=== PATIENT | male | born 1950 | race Hispanic/Latino ===

== ENCOUNTER → 2021-12-20 | Outpatient (CLI) | payer OTHER ==
[~2021-12-20] MED LIST: IOHEXOL 350 MG/ML 100ML INFUS..BTL IV ONE
== END | disposition home or self-care (01) ==
LOC: RAH 09:44
PROVIDERS: ATTEND Internal Medicine Gastroenterology
DX: K74.60 Unspecified cirrhosis of liver (principal); R77.2 Abnormality of alphafetoprotein; K80.20 Calculus of gallbladder without cholecystitis without obstruction; R16.1 Splenomegaly, not elsewhere classified
CPT/HCPCS: 74170; Q9967

== ENCOUNTER 2023-03-06 15:46 | Observation (INO) | payer OTHER ==
[~2023-03-06] VITALS: Ht 165.1 cm; Wt 80.1 kg
[2023-03-06 16:28] LABS: BILIRUBIN,URINE NEGATIVE (NEGATIVE); COLOR,URINE YELLOW (YELLOW); GLUCOSE, URINE (UA) NEGATIVE (NEGATIVE); KETONES,URINE NEGATIVE (NEGATIVE); LEUKOCYTE ESTERASE ,URINE NEGATIVE Leu/uL (NEGATIVE); NITRATE,URINE NEGATIVE (NEGATIVE); OCCULT BLOOD,URINE NEGATIVE (NEGATIVE); PH,URINE 7.5 (5.0-8.0); PROTEIN,URINE NEGATIVE (NEGATIVE)
[2023-03-06 16:29] LABS: ADD UA MICROSCOPIC YES; APPEARANCE,URINE HAZY (CLEAR)
[2023-03-06 16:30] LABS: BASOPHILS # (AUTO) 0.03 K/uL (0.00-0.20); BASOPHILS % (AUTO) 0.8 % (0.0-5.0); EOSINOPHILS # (AUTO) 0.27 K/uL (0.00-0.70); HEMATOCRIT 39.7 % (42-54); IMMATURE GRANULOCYTE ABSOLUTE 0.02 K/uL (0-1); LYMPHOCYTES # (AUTO) 1.3 K/uL (1.0-4.8); LYMPHOCYTES % (AUTO) 32.9 % (21.0-51.0); MEAN CORPUSCULAR HEMOGLOBIN 30.5 pg (27.0-33.0); MEAN CORPUSCULAR VOLUME 92.3 fL (79-99); MONOCYTES # (AUTO) 0.6 K/uL (0.1-1.0); MONOCYTES % (AUTO) 16.1 % (3.0-13.0); NEUTROPHILS # (AUTO) 1.7 K/uL (1.8-7.7); NEUTROPHILS % (AUTO) 42.7 % (40.0-77.0); PLATELET COUNT (AUTO) 112 K/uL (130-400); RED CELL DISTRIBUTION WIDTH 15.4 % (11.0-15.5); WHITE BLOOD COUNT (AUTO) 3.9 K/uL (4.8-10.8)
[2023-03-06 16:37] LABS: CREATININE 0.7 mg/dL (0.5-1.5); POTASSIUM 3.7 mmol/L (3.5-5.1)
[2023-03-06 16:44] LABS: ALBUMIN 3.4 g/dL (3.5-5.0); BILIRUBIN,TOTAL 1.6 mg/dL (0.2-1.0); TOTAL PROTEIN, SERUM 7.5 g/dL (6.0-8.3)
[2023-03-06 17:07] LABS: BACTERIA,URINE FEW /HPF (None Seen); MUCUS,URINE RARE LPF (None Seen); RBC,URINE 0-1 /HPF (0-1); WBC,URINE 0-1 /HPF (0-1)
[2023-03-06] MEDS ORDERED: LACTULOSE 20 GM/30 ML UDCUP PO ONE (17:30)
[2023-03-06 18:59] LABS: ALCOHOL, BLOOD < 3 mg/dL (0-10)
[2023-03-06 19:07] LABS: AMPHET/METH SCREEN,URINE NEGATIVE (NEGATIVE); BARBITURATE SCREEN, URINE NEGATIVE (NEGATIVE); BENZODIAZEPINES SCREEN,URINE NEGATIVE (NEGATIVE); CANNABINOID SCREEN,URINE NEGATIVE (NEGATIVE); COCAINE SCREEN,URINE NEGATIVE (NEGATIVE); OPIATE SCREEN,URINE NEGATIVE (NEGATIVE); PHENCYCLIDINE SCREEN,URINE NEGATIVE (NEGATIVE)
[2023-03-06 19:17] LABS: RAPID GROUP A STREP negative (NEGATIVE)
[2023-03-06 19:29] LABS: INFLUENZA TYPE A Negative For Type A (NEGATIVE); INFLUENZA TYPE B Negative For Type B (NEGATIVE)
[2023-03-06 19:30] LABS: COVID19 (SARS ANTIGEN RAPID) PRESUMPTIVE NEGATIVE (NEGATIVE)
[2023-03-06] MEDS: LACTULOSE 20 GM/30 ML UDCUP PO SCH (20:56)
[2023-03-06] MEDS: 0.9%NACL 1000ML 1,000 ML IV SCH (20:56)
[2023-03-06] MEDS: INSULIN HUMULIN R 100 UNIT/ML 3ML SQ SCH (20:56)
[2023-03-06] MEDS ORDERED: ONDANSETRON 4MG INJ IV PRN (21:00)
[2023-03-06] MEDS ORDERED: LABETALOL 20MG VIAL IV PRN (21:00)
[2023-03-06 22:35] VITALS: BP 123/70; PULSE 64; RESP 18
[2023-03-07] MEDS: 0.9%NACL 1000ML 1,000 ML IV SCH ×2 (01:52→09:21)
[2023-03-07] MEDS ORDERED: PROP10TA10 PO (03:52)
[2023-03-07] MEDS ORDERED: FENO145T26 PO (03:52)
[2023-03-07] MEDS ORDERED: ATOR10 PO (03:52)
[2023-03-07] MEDS ORDERED: LOSA50TA64 PO (03:52)
[2023-03-07 04:00] VITALS: BP 110/52; PULSE 65; RESP 18
[2023-03-07] MEDS ORDERED: MECO10005 PO (04:00)
[2023-03-07] MEDS ORDERED: CALC-866 PO (04:00)
[2023-03-07] MEDS: LACTULOSE 20 GM/30 ML UDCUP PO SCH (05:00)
[2023-03-07] MEDS: INSULIN HUMULIN R 100 UNIT/ML 3ML SQ SCH ×2 (06:13→11:30)
[2023-03-07 08:00] VITALS: O2SAT 99
[2023-03-07 08:04] VITALS: BP 114/71; PULSE 61; RESP 17
[2023-03-07] MEDS ORDERED: PANTOPRAZOLE 40 MG TAB DR PO SCH (09:00)
[2023-03-07] MEDS ORDERED: LACT PO (11:21)
[2023-03-07 12:00] VITALS: BP 110/73; PULSE 64; RESP 16
== END 2023-03-07 13:10 | disposition home or self-care (01) ==
LOC: EDH 15:46 → 4CH 20:36 → UNDOADMIN 20:36 → EDHIP 20:36 → INTOOBSV 20:36 → EDHIP 22:12 → 4CH 22:12
PROVIDERS: ADMIT Hospitalist; ATTEND Hospitalist
DX: S09.90XA Unspecified injury of head, initial encounter (principal); Z20.822 Contact with and (suspected) exposure to COVID-19; K76.82 Hepatic encephalopathy; E72.20 Disorder of urea cycle metabolism, unspecified; I10 Essential (primary) hypertension; E11.9 Type 2 diabetes mellitus without complications; M79.622 Pain in left upper arm; R41.82 Altered mental status, unspecified; E78.00 Pure hypercholesterolemia, unspecified; K76.0 Fatty (change of) liver, not elsewhere classified; I70.90 Unspecified atherosclerosis; W54.1XXA Struck by dog, initial encounter; Y93.89 Activity, other specified; Y92.89 Other specified places as the place of occurrence of the external cause; Y99.8 Other external cause status
CPT/HCPCS: 96360; 96361 ×3; 99285; 84484; 80053; 80305; 82140 ×2; 83690; 85025; 87880; 87420; 87804 ×2; 82948 ×3; 87426; 81001; 36415 ×2; 71045; 70450; 76705; 93005; J7030; G0378 ×2

== ENCOUNTER → 2023-06-26 | Outpatient (CLI) | payer OTHER ==
[~2023-06-26] MED LIST changes: +ATOR10 PO; +CALC-866 PO; +FENO145T26 PO; +GADOTERATE MEGLUMINE 10 MMOL/20 ML VIAL IV ONE; -IOHEXOL 350 MG/ML 100ML INFUS..BTL IV ONE; +LACT PO; +LOSA50TA64 PO; +MECO10005 PO; +PROP10TA10 PO
== END | disposition home or self-care (01) ==
LOC: RAH 10:42
PROVIDERS: ATTEND Internal Medicine Gastroenterology
DX: K74.60 Unspecified cirrhosis of liver (principal); R77.2 Abnormality of alphafetoprotein
CPT/HCPCS: 74183; A9575

== ENCOUNTER 2023-07-29 22:59 | Inpatient (IN) | payer OTHER ==
[~2023-07-29] VITALS: Ht 165.1 cm; Wt 78.0 kg
[~2023-07-29 22:59] MED LIST changes: -GADOTERATE MEGLUMINE 10 MMOL/20 ML VIAL IV ONE
[2023-07-29 23:28] LABS: BASOPHILS # (AUTO) 0.03 K/uL (0.00-0.20); BASOPHILS % (AUTO) 0.7 % (0.0-5.0); EOSINOPHILS % (AUTO) 4.9 % (0.0-8.0); HEMATOCRIT 38.3 % (42-54); IMMATURE GRANULOCYTE ABSOLUTE 0.04 K/uL (0-1); LYMPHOCYTES # (AUTO) 1.3 K/uL (1.0-4.8); LYMPHOCYTES % (AUTO) 31.9 % (21.0-51.0); MEAN CORPUSCULAR HEMOGLOBIN 31.3 pg (27.0-33.0); MEAN CORPUSCULAR HGB CONC 33.9 g/dL (32.0-36.0); MEAN CORPUSCULAR VOLUME 92.3 fL (79-99); MONOCYTES # (AUTO) 0.5 K/uL (0.1-1.0); MONOCYTES % (AUTO) 12.3 % (3.0-13.0); NEUTROPHILS % (AUTO) 49.2 % (40.0-77.0); PLATELET COUNT (AUTO) 82 K/uL (130-400); RED BLOOD CELL COUNT(AUTO) 4.15 MIL/uL (4.50-6.20); RED CELL DISTRIBUTION WIDTH 15.7 % (11.0-15.5); WHITE BLOOD COUNT (AUTO) 4.1 K/uL (4.8-10.8)
[2023-07-29 23:37] LABS: CREATININE 0.9 mg/dL (0.5-1.3); POTASSIUM 3.6 mmol/L (3.5-5.1)
[2023-07-29 23:40] LABS: INR 1.25 (0.85-1.15); PROTHROMBIN TIME 14.5 SEC (9.6-11.6)
[2023-07-29 23:41] LABS: PARTIAL THROMBOPLASTIN TIME 31.5 SEC (26.3-35.5)
[2023-07-29 23:45] LABS: ALBUMIN 3.3 g/dL (3.5-5.0); BILIRUBIN,TOTAL 2.5 mg/dL (0.2-1.0)
[2023-07-30 00:18] LABS: B-TYPE NATRIURETIC PEPTIDE 35 pg/mL (0-100)
[2023-07-30] MEDS: LACTULOSE 20 GM/30 ML UDCUP PO ONE (00:40)
[2023-07-30] MEDS ORDERED: HYDRALAZINE 20MG/ML VIAL IV PRN (02:30)
[2023-07-30] MEDS ORDERED: ONDANSETRON 4MG INJ IV PRN (02:30)
[2023-07-30 03:51] LABS: APPEARANCE,URINE CLEAR (CLEAR); BILIRUBIN,URINE NEGATIVE (NEGATIVE); COLOR,URINE YELLOW (YELLOW); GLUCOSE, URINE (UA) NEGATIVE (NEGATIVE); KETONES,URINE 5 mg/dL (NEGATIVE); LEUKOCYTE ESTERASE ,URINE NEGATIVE Leu/uL (NEGATIVE); NITRATE,URINE NEGATIVE (NEGATIVE); OCCULT BLOOD,URINE NEGATIVE (NEGATIVE); PH,URINE 6.5 (5.0-8.0); PROTEIN,URINE NEGATIVE (NEGATIVE)
[2023-07-30 04:16] LABS: BASOPHILS # (AUTO) 0.03 K/uL (0.00-0.20); BASOPHILS % (AUTO) 0.8 % (0.0-5.0); EOSINOPHILS # (AUTO) 0.21 K/uL (0.00-0.70); EOSINOPHILS % (AUTO) 5.7 % (0.0-8.0); HEMATOCRIT 43.5 % (42-54); IMMATURE GRANULOCYTE ABSOLUTE 0.02 K/uL (0-1); LYMPHOCYTES # (AUTO) 1.1 K/uL (1.0-4.8); LYMPHOCYTES % (AUTO) 30.9 % (21.0-51.0); MEAN CORPUSCULAR HEMOGLOBIN 30.6 pg (27.0-33.0); MEAN CORPUSCULAR HGB CONC 33.8 g/dL (32.0-36.0); MEAN CORPUSCULAR VOLUME 90.6 fL (79-99); MONOCYTES # (AUTO) 0.4 K/uL (0.1-1.0); MONOCYTES % (AUTO) 11.7 % (3.0-13.0); NEUTROPHILS # (AUTO) 1.8 K/uL (1.8-7.7); NEUTROPHILS % (AUTO) 50.4 % (40.0-77.0); PLATELET COUNT (AUTO) 45 K/uL (130-400); RED CELL DISTRIBUTION WIDTH 15.9 % (11.0-15.5); WHITE BLOOD COUNT (AUTO) 3.7 K/uL (4.8-10.8)
[2023-07-30 04:32] LABS: ADD UA MICROSCOPIC YES
[2023-07-30 04:34] LABS: BACTERIA,URINE FEW /HPF (None Seen); MUCUS,URINE RARE LPF (None Seen); RBC,URINE 0-1 /HPF (0-1); SQUAMOUS EPITHELIAL CELL,UR RARE /HPF (0-2)
[2023-07-30 04:37] LABS: ALBUMIN 3.1 g/dL (3.5-5.0); BILIRUBIN,DIRECT 0.9 mg/dL (0.0-0.3); BILIRUBIN,TOTAL 2.6 mg/dL (0.2-1.0); CREATININE 0.8 mg/dL (0.5-1.3); MAGNESIUM 1.8 mg/dL (1.80-2.40); POTASSIUM 3.7 mmol/L (3.5-5.1); TOTAL PROTEIN, SERUM 6.7 g/dL (6.0-8.3)
[2023-07-30 08:00] VITALS: BP 143/75; PULSE 57; RESP 18
[2023-07-30] MEDS ORDERED: LACTULOSE 20 GM/30 ML UDCUP PO SCH (09:00)
[2023-07-30] MEDS: LACTULOSE 20 GM/30 ML UDCUP PO SCH (09:19)
[2023-07-30] MEDS: FAMOTIDINE 20MG VIAL IV SCH (09:19)
[2023-07-30 12:00] VITALS: BP 136/95; PULSE 87; RESP 18
[2023-07-30] MEDS ORDERED: COMPOUND IV REFRIGERATED 1 EACH IVSOLN MISC PRN (12:30)
[2023-07-30] MEDS ORDERED: POTASSIUM CHLORIDE 10% ELIXIR 20 MEQ/15 ML UDCUP PO PRN (14:00)
[2023-07-30] MEDS ORDERED: POTASSIUM CHLORIDE 20MEQ/100ML 100 ML IV PRN (14:00)
[2023-07-30] MEDS: KCL 20 MEQ ERTAB PO PRN (14:06)
[2023-07-30] MEDS: MAGNESIUM 2GM PREMIX 50ML 50 ML IV PRN (14:07)
[2023-07-30 16:00] VITALS: BP_SYST 143; BP_SYST 144; BP_DIAS 75; BP_DIAS 98; PULSE 56; PULSE 66; RESP 18
[2023-07-30 20:00] VITALS: O2SAT 99
[2023-07-30 20:15] VITALS: BP 154/79; PULSE 60; RESP 18
[2023-07-31] VITALS (9 sets, daily range): BP systolic 120–148; BP diastolic 70–78; PULSE 62–71; RESP 17–20; O2SAT 99–100
[2023-07-31 04:47] LABS: BASOPHILS # (AUTO) 0.03 K/uL (0.00-0.20); EOSINOPHILS # (AUTO) 0.21 K/uL (0.00-0.70); EOSINOPHILS % (AUTO) 6.8 % (0.0-8.0); IMMATURE GRANULOCYTE ABSOLUTE 0.02 K/uL (0-1); LYMPHOCYTES % (AUTO) 33.5 % (21.0-51.0); MEAN CORPUSCULAR HEMOGLOBIN 30.9 pg (27.0-33.0); MEAN CORPUSCULAR HGB CONC 33.5 g/dL (32.0-36.0); MEAN CORPUSCULAR VOLUME 92.1 fL (79-99); MONOCYTES # (AUTO) 0.5 K/uL (0.1-1.0); MONOCYTES % (AUTO) 17.4 % (3.0-13.0); NEUTROPHILS # (AUTO) 1.3 K/uL (1.8-7.7); NEUTROPHILS % (AUTO) 40.7 % (40.0-77.0); PLATELET COUNT (AUTO) 68 K/uL (130-400); RED BLOOD CELL COUNT(AUTO) 3.69 MIL/uL (4.50-6.20); RED CELL DISTRIBUTION WIDTH 15.9 % (11.0-15.5); WHITE BLOOD COUNT (AUTO) 3.1 K/uL (4.8-10.8)
[2023-07-31 05:08] LABS: ALBUMIN 2.7 g/dL (3.5-5.0); BILIRUBIN,TOTAL 2.1 mg/dL (0.2-1.0); CREATININE 1.1 mg/dL (0.5-1.3); MAGNESIUM 1.8 mg/dL (1.80-2.40); POTASSIUM 4.1 mmol/L (3.5-5.1); TOTAL PROTEIN, SERUM 5.9 g/dL (6.0-8.3)
[2023-07-31] MEDS: M.V.I. IV [ADULT] 10 ML, FOLIC ACID 1 MG, THIAMINE HCL 100 MG in 0.9%NACL 1000ML 1,000 ML IV SCH (09:07)
[2023-07-31] MEDS: PROPRANOLOL HCL 10 MG TAB PO SCH (20:47)
[2023-08-01 04:49] VITALS: BP 124/66; PULSE 68; RESP 18
[2023-08-01 08:00] VITALS: O2SAT 99
[2023-08-01 08:15] VITALS: BP 132/72; PULSE 58; RESP 18
[2023-08-01] MEDS ORDERED: RIFAXIMIN 200 MG TABLET PO ONE (09:00)
[2023-08-01] MEDS: LOSARTAN 50 MG TABLET PO SCH (10:02)
[2023-08-01] MEDS: FENOFIBRATE NANOCRYSTALLIZED 145 MG TAB PO SCH (10:02)
[2023-08-01] MEDS: Mecobalamin (B12 Active) 1,000 MCG PO SCH (10:03)
[2023-08-01] MEDS ORDERED: RIFA550T PO (11:36)
[2023-08-01 11:39] VITALS: BP 120/59; PULSE 58; RESP 18
== END 2023-08-01 13:55 | disposition home or self-care (01) | DRG 442 ==
LOC: EDH 22:59 → EDHIP 07-30 02:18 → 4DH 07-30 07:30
PROVIDERS: ADMIT Internal Medicine; ATTEND Internal Medicine
DX: K76.82 Hepatic encephalopathy (principal); D61.818 Other pancytopenia; K74.60 Unspecified cirrhosis of liver; K76.0 Fatty (change of) liver, not elsewhere classified; E11.9 Type 2 diabetes mellitus without complications; I10 Essential (primary) hypertension; E78.00 Pure hypercholesterolemia, unspecified; Z90.49 Acquired absence of other specified parts of digestive tract; Z79.899 Other long term (current) drug therapy
CPT/HCPCS: 36415; 70450; 71045; 80053; 80061; 80076; 81001; 82140; 82270; 82550; 82948; 83036; 83735; 83880; 84484; 85025; 85610; 85730; 93005; G0378; J3411; J3475; J3490; J7030

== ENCOUNTER → 2024-04-16 | Outpatient (CLI) | payer OTHER ==
[~2024-04-16] MED LIST changes: +ATOR20TA65 PO; +CARB-283 OP; +CHOL500051 PO; +FLUT15.845 NS; +FURO20TA4 PO; +LACT-441 PO; +LATA2.5D14 OP; +RIFA550T PO; +SPIR50TA5 PO
--- NOTE | 2024-04-16 11:25 | NUR ---
U/S GD RT THORACENTESIS TOLERATED PROCEDURE. PERFORMED BY DR Petra CHAND. 1.5 LITERS OF DARK BROWN CLOUDY FLUID REMOVED. PUNCTURE SITE TO RT BACK. END OF PROCEDURE 1105. SPECIMEN SENT TO LAB. DRESSING DRY AND INTACT. NO BLEEDING NOTED. POST CHEST XRAY TAKEN. PER DR CHAND NO PNEUMOTHORAX SEEN. DISCHARGE INSTRUCTIONS GIVEN TO PT AND DAUGHTER. DISCHARGE VIA WHEELCHAIR. DENIES PAIN. A&O.
--- NOTE | 2024-04-16 11:27 | HMCIMG ---
CHEST 1VW REASON: POST RT THORACENTESIS COMPARISON: 07/29/2023 FINDINGS: Single view of the chest was obtained. Lungs are clear. Heart size is normal. There is no pulmonary vascular congestion. Mediastinum and bony thorax appear unremarkable. There is no evidence of pneumothorax. IMPRESSION: 1. No evidence of pneumothorax following right-sided thoracentesis.
[2024-04-16 11:36] LABS: INR 1.66 (0.85-1.15); PROTHROMBIN TIME 17.7 SEC (9.6-11.6)
[2024-04-16 11:38] LABS: PARTIAL THROMBOPLASTIN TIME 41.4 SEC (26.3-35.5)
--- NOTE | 2024-04-16 14:16 | HMCIMG ---
US THORACENTISIS/ASP W IMG IR REASON: PLEURLA EFFUSION COMPARISON: None TECHNIQUE: Ultrasound-guided thoracentesis was discussed with patient and family. Right pleural effusion was identified from the posterior approach with patient in the seated upright position. Overlying skin was prepped and draped in a sterile fashion and anesthetized with 1% Xylocaine ". 5 Frisian catheter was placed in the fluid using trocar technique. 1.5 L of fluid were removed. Postprocedure chest x-ray showed no evidence of pneumothorax or other complication. IMPRESSION: 1. Ultrasound guided right-sided thoracentesis as described.
[2024-04-16 15:48] LABS: BODY FLUID RBC 42075 /cu. mm.; BODY FLUID WBC 347 /cu. mm.
[2024-04-16 16:28] LABS: APPEARANCE BODY FLUID BLOODY (CLEAR); COLOR,BODY FLUID RED (LT YELLOW); SPECIMENTYPE,BODY FLUID ASCITES; TOTAL VOLUME,BODY FLUID 1500 mL
[2024-04-16 16:41] LABS: BF LYMPHOCYTE 75 %; BF MESOTHELIAL 6 %; BF MONOCYTE 6 %; BF TOTAL CELLS COUNTED 100
== END ==
LOC: RAH 09:24
PROVIDERS: ATTEND Student in an Organized Health Care Education/Training Program
DX: J90 Pleural effusion, not elsewhere classified (principal); N18.32 Chronic kidney disease, stage 3b; Z87.891 Personal history of nicotine dependence; Z79.01 Long term (current) use of anticoagulants; Z79.899 Other long term (current) drug therapy; Z98.890 Other specified postprocedural states
CPT/HCPCS: 32555; 71045; 89051; 85610; 85730; 87071; 87205; 36415; C1729